=== PATIENT | female | born 1995 | race Two or more races ===

== ENCOUNTER 2024-07-10 13:26 | Emergency (ER) | payer MEDICAID, SELFPAY ==
[2024-07-10 13:30] VITALS: BP 138/76; PULSE 75; RESP 18; TEMP 36.8; O2SAT 98
--- NOTE | 2024-07-10 13:42 | PD.EDRME ---
Rapid Medical Screening Exam RME Arrival date/time: 07/10/24 13:26 Chief Complaint: Nausea/Vomiting/Diarrhea Time Seen by Provider: 07/10/24 13:32 Vital signs: Vital Signs Temperature 98.3 F 07/10/24 13:30 Pulse Rate 75 07/10/24 13:30 Respiratory Rate 18 07/10/24 13:30 Blood Pressure 138/76 H 07/10/24 13:30 Pulse Oximetry (%) 98 07/10/24 13:30 Oxygen Delivery Method Room Air 07/10/24 13:30 RME Narrative: Shortness of breath, n/v started this morning. History of anxiety. Patient reports she has recently been stressed out.
--- NOTE | 2024-07-10 13:43 | XR_ITS ---
Examination: AP chest single view Technique one AP upright portable chest single view Exam date and time: July 10, 2024 1353 hours Comparison February 13, 2023 INDICATIONS: Shortness breath chest pain today FINDINGS: Normal heart size Lungs are clear. The osseous structures are intact IMPRESSION: No active disease
--- NOTE | 2024-07-10 13:43 | EKG_ITS ---
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
[2024-07-10] MEDS: ONDANSETRON ODT 4 MG TABRAP 8 MG PO (14:29)
[2024-07-10 14:47] LABS: Basophils % (Auto) 0 % (0-2.5); Eosinophils % (Auto) 0 % (0-10); Hematocrit 40.1 % (36.0-46.0); Hemoglobin 14.2 g/dL (12.0-16.0); Immature Granulocytes % (Auto) 0 % (0-0); Immature Granulocytes Auto 0.01 Thou/mm3 (0.00-0.00); Lymphocytes # (Auto) 0.8 Thou/mm3 (1.0-4.8); Lymphocytes % (Auto) 21 % (10-50); Mean Corpuscular HGB Conc 35.4 g/dl (31.0-37.0); Mean Corpuscular Hemoglobin 32.1 pg (25.0-35.0); Mean Corpuscular Volume 91 fL (80-100); Monocytes # (Auto) 0.4 Thou/mm3 (0.0-0.8); Monocytes % (Auto) 11 % (0-12); Neutrophils # (Auto) 2.5 Thou/mm3 (1.8-7.7); Neutrophils % (Auto) 67 % (37-80); Nucleated Red Blood Cell % 0 /100 WBC (0); Platelet Count 304 Thou/mm3 (140-440); RDW Standard Deviation 38.8 fL (36.4-46.3); Red Blood Count 4.43 Miln/mm3 (4.00-5.20); White Blood Count 3.7 Thou/mm3 (3.6-11.0)
[2024-07-10 15:08] LABS: B-Type Natriuretic Peptide < 20 pg/mL (0-100)
[2024-07-10 15:14] LABS: Alanine Aminotransferase 21 U/L (10-49); Albumin, Serum 5.1 gm/dL (3.5-5.0); Alcohol, Blood Medical < 3.0 mg/dL (0-10.0); Alkaline Phosphatase 44 U/L (46-116); Anion Gap 10 (7-16); Aspartate Amino Transferase 28 U/L (0-34); BUN/Creatinine Ratio 9 Ratio (12-20); Bilirubin,Total 0.7 mg/dL (0.3-1.2); Blood Urea Nitrogen 8 mg/dL (9-23); Calcium 9.6 mg/dL (8.3-10.6); Calcium (Corrected) 9.6 mg/dL (8.5-10.1); Carbon Dioxide 24.4 mMol/L (20.0-31.0); Chloride 104 mMol/L (98-107); Creatinine (Component) 0.9 mg/dL (0.6-1.3); Globulin 2.6 gm/dL (2.3-3.5); Glucose 97 mg/dL (74-106); Lipase 33 U/L (12-53); Osmolality,Calculated 273 (275-295); Potassium 3.7 mMol/L (3.4-5.1); Sodium 138 mMol/L (136-145); Total Protein 7.7 gm/dL (5.7-8.2); Troponin I < 0.020 ng/mL (0.0-0.045); eGFR > 60 See Note
[2024-07-10 17:27] LABS: Collection Type, Urine Clean Catch; WBC,Urine 0 /hpf (0-5)
[2024-07-10 17:41] LABS: HCG Qualitative,Urine Negative
[2024-07-10 17:44] LABS: Amorphous Crystals,Urine Present (Absent); Bilirubin,Urine Negative (Negative); Blood,Urine 3+ (Negative); Color,Urine Orange (Lt Yel-Yel); Glucose, Urine Negative (Negative); Ketones,Urine 4+ (Negative); Leukocyte Esterase,Urine Negative (Negative); Nitrite,Urine Negative (Negative); Protein,Urine 2+ (Neg - Trace); RBC,Urine 10 /hpf (0-3); Specific Gravity,Urine 1.035 (1.001-1.035); Squamous Epithelial Cell,Urine 25 /hpf (0-5)
[2024-07-10 17:45] LABS: Clarity,Urine Cloudy (Clear/Hazy)
[2024-07-10 17:58] LABS: Amphetamine/Methamp Scrn,U Negative (Negative); Barbiturate Screen,Urine Negative (Negative); Benzodiazepines Screen,Urine Negative (Negative); Benzoylecgonine Screen, Ur Negative (Negative); Fentanyl Screen,Urine Negative (Negative); Opiate Screen,Urine Negative (Negative); THC Screen,Urine Positive (Negative)
[2024-07-10] MEDS: ACETAMINOPHEN 500 MG TABLET 1000 MG PO (18:41)
--- NOTE | 2024-07-10 19:41 | EDNOTE_ITS ---
<Statement entered by Caroline Liegh MD - 07/11/24 19:38> As co-signing physician, I was present and available for consult prn. I concur with the plan and care as documented by the midlevel provider. Nausea/Vomit./Diarrhea-RME/HPI General Chief complaint: Nausea/Vomiting/Diarrhea Stated complaint: N/V, COUGH X2 DAYS, ANXIETY Time Seen by Provider: 07/10/24 13:32 Arrival date/time: 07/10/24 13:26 RME / HPI RME / HPI Narrative: 29-year-old female patient with significant history of anxiety, came in for evaluation regarding shortness of breath, cough, nausea, vomiting, started this morning. Severity of symptoms, moderate. Denies any blood in the vomiting. Patient told me that recently she has been stressed out a lot. Also admits of smoking marijuana denies any fever denies any other complaints no medications taken prior travel. Related Data Previous Rx's ?Medication ?Instructions ?Recorded mupirocin calcium 2 % topical cream 1 applic topical QDAY #15 grams 11/20/20 ibuprofen 800 mg tablet 800 mg PO TID PRN pain #30 tabs 07/27/23 ondansetron HCl 8 mg tablet 8 mg PO Q8H PRN nausea and 07/10/24 vomiting 5 days #20 tabs Allergies Allergy/AdvReac Type Severity Reaction Status Date / Time Penicillins Allergy Mild RASH Verified 07/10/24 13:28 Review of Systems Review of Systems Narrative Review of Systems: Review of system reviewed and within normal limits except mentioned in HPI ED Exam Narrative Physical exam: VITAL SIGNS: Reviewed. GENERAL APPEARANCE: Alert and interactive, follows commands, no acute distress, HEAD AND FACE: Non-traumatic. ENT: PERRL, pink conjunctivitis, eyelid no trauma, Mucous membrane moist. NECK: Supple, nontender, no nuchal rigidity. CHEST: No tenderness, no crepitus, no paradoxical movement, no retractions. LUNGS: Clear, well ventilated, symmetric, no rales, no wheezing, no ronchi, no stridor, good breath sounds bilaterally. HEART: Regular rate, regular rhythm, no murmur, no gallops. ABDOMEN: Soft, positive bowel sounds, nondistended, no guarding, nontender, no rebound, no masses, RECTAL: Deferred. GENITAL: Deferred. NEUROLOGICAL: Gross motor function intact sensory function intact, Appropriate for age. MUSCULOSKELETAL: low back nontender, full range of motion. EXTREMITIES: Nontender, full range of motion. SKIN: Color pink, dry, no rash, no lacerations, no abrasions, no contusions. LYMPHATICS: Deferred. Course Quality Measures none Orders Category Date Time Status EKG (ED ONLY) *Do not use* NOW Care 07/10/24 13:43 Completed CXR [XR chest 1V] Stat Exams 07/10/24 13:43 Completed EKG (ED Only) Stat Exams 07/10/24 13:43 Draft Alcohol, Blood Medical Stat Lab 07/10/24 14:25 Completed BNP [B-Type Natriuretic Peptide] Stat Lab 07/10/24 14:25 Completed CBC Stat Lab 07/10/24 14:25 Completed CMP [Comprehensive Metabolic Panel] Stat Lab 07/10/24 14:25 Completed Drug Screen,Urine Stat Lab 07/10/24 16:50 Completed HCG Qualitative,Urine Stat Lab 07/10/24 16:50 Completed Lipase Stat Lab 07/10/24 14:25 Completed Troponin I Stat Lab 07/10/24 14:25 Completed UA [Urinalysis] Stat Lab 07/10/24 16:50 Completed Acetaminophen Tab [Tylenol ES Tab] Med 07/10/24 17:52 Discontinued 1,000 mg PO X1 ONE Ondansetron Odt [Zofran Odt] Med 07/10/24 14:00 Discontinued 8 mg PO X1 ONE Vital Signs Vital signs: Vital Signs Temperature 98.3 F 07/10/24 13:30 Pulse Rate 75 07/10/24 13:30 Respiratory Rate 18 07/10/24 13:30 Blood Pressure 138/76 H 07/10/24 13:30 Pulse Oximetry (%) 98 07/10/24 13:30 Oxygen Delivery Method Room Air 07/10/24 13:30 Nausea/Vomiting/Diarrhea MDM Narrative MDM Narrative:: 29-year-old female patient with significant history of anxiety, came in for evaluation regarding shortness of breath, cough, nausea, vomiting, started this morning. Severity of symptoms, moderate. Denies any blood in the vomiting. Patient told me that recently she has been stressed out a lot. Also admits of smoking marijuana denies any fever denies any other complaints no medications taken prior travel. Patient workup today all came back normal except positive for marijuana. Patient was given Zofran, Tylenol, on Reglan with complete resolution of symptoms. Chest x-ray UNREMARKABLE. Patient is ready to go home. Patient data External records reviewed:: None Clinical information provided by:: none Social determinants that could affect healthcare access:: substance use Patient has the following chronic illnesses:: anxiety How is presenting disease/condition affected by chronic disease/condition?: exacerbated by Evaluation data The following diagnostics were reviewed and interpreted by me:: lab results, radiology exam(s) and EKG tracing(s) Lab and/or radiology exams considered but not ordered:: None Interpretation Summary: Laboratory workup came back unremarkable. EKG showed sinus bradycardia, ventricular rate of 40 bpm, no ST segment elevation depression noted. I personally reviewed and interpreted the x-ray of this patient. There is no acute abnormalities found, no infiltrates no pneumothorax no hemothorax normal chest x-ray. Review of other structures was without significant abnormal findings also. I additionally reviewed the radiologist report and agree with the interpretation. Medications / Prescriptions Medications / Prescriptions considered but not ordered:: None Medication administrations:: Medication Administration History Discontinued Medications Acetaminophen (Acetaminophen 500 Mg Tablet) 1,000 mg PO X1 ONE Stop: 07/10/24 17:53 Last Admin: 07/10/24 18:41 Dose: 1,000 mg Documented By: Ondansetron HCl (Ondansetron Odt 4 Mg Tabrap) 8 mg PO X1 ONE; Protocol Stop: 07/10/24 14:01 Last Admin: 07/10/24 14:29 Dose: 8 mg Documented By: Tylenol, Zofran Consultations Consultation(s) initiated? (list below): No Diagnosis Nausea Differential Diagnosis: food poisoning and other (Nausea vomiting, hyperemesis syndrome secondary to marijuana) Most likely diagnosis given after review of the tests above:: Nausea and vomiting Admission Indicated Admission indicated?: not indicated Admission Request Was there a request for admission?: No Disposition Plan Disposition Plan: Discharge Discharge Attestation Discharge Attestation: The patient and all family members were given an opportunity to ask questions and understood the discharge instructions. Discharge instructions specifically effects, indications for sooner follow up or return to the emergency department, and the expected course of current diagnosis. Patient condition: Stable Discharge Plan Plan Patient Disposition: HOME (Self Care) Disposition Comment: Stable Prescriptions/Referrals Prescriptions/Med Rec: New ondansetron HCl 8 mg tablet 8 mg PO Q8H PRN (Reason: nausea and vomiting) 5 Days Qty: 20 0RF No Action mupirocin calcium 2 % cream 1 applic topical QDAY Qty: 15 0RF ibuprofen 800 mg tablet 800 mg PO TID PRN (Reason: pain) Qty: 30 0RF Referrals: Nathen Dykes MD [Primary Care Provider] - In 1 week Problem List Clinical Impression: Nausea & vomiting, Cough Patient/Caregiver Discharge Instructions Discharge Activity: activity as tolerated Education Materials: ED Diet for Vomiting or ... Additional Instructions: Thank you for the opportunity for serving you today. You are stable for discharged . You are advised to: Follow-up with your PCP in 1 to 2 days Return to ED for worsening of symptoms Increase oral fluids Take medication as prescribed Print Language: Latvian Stand Alone Forms: Gracie Award Info., Patient Portal Info Letter PA/BO Supervising Physician DIVINA/BO Supervising Physician: MD Lu
[2024-07-10] MEDS: METOCLOPRAMIDE 5 MG TABLET 10 MG PO (19:59)
== END 2024-07-10 20:19 | disposition home or self-care (01) ==
PROVIDERS: Physician Assistant; Emergency Provider Emergency Medicine; PCP Family Medicine
DX: R11.2 Nausea with vomiting, unspecified (principal); R05.9 Cough, unspecified; R00.1 Bradycardia, unspecified
CPT/HCPCS: 36415; 71045; 80053; 80307; 80320; 81001; 81025; 83690; 83880; 84484; 85025; 93005; 99283; Q0162; A9270; G0480

== ENCOUNTER 2025-02-01 22:24 | Emergency (ER) | payer MEDICAID, SELFPAY ==
[2025-02-01 22:26] VITALS: BMI 40.0
[2025-02-01 22:35] VITALS: BP 130/87; RESP 18; TEMP 37.1; O2SAT 99
--- NOTE | 2025-02-01 23:58 | PD.EDABDPN ---
ED Abdominal Pain RME/HPI General Chief Complaint: Abdominal Pain Stated complaint: 9 WKS PREG CO LOW ABD PAIN Time seen by provider: 02/01/25 23:52 Arrival date/time: 02/01/25 22:24 RME / HPI RME / HPI narrative: This section includes all my notes and documentations, including HPI, PE, and ED course. Ha Naqvi MD HPI: 29yo female who is ~9 weeks gestation here with pelvic cramping today. LMP was 11/29/24. No vaginal bleeding. No other complaints. ROS: All negative except as documented in HPI. Physical Exam: General: Alert and oriented. No acute distress when remaining still. Eyes: Conjunctivae and lids clear. ENT: No nasal congestion. Neck: Supple. Heart: RRR. Lungs: No respiratory distress. Good air movement. No rhonchi, wheezing, rales. Abdomen: Soft and nontender. Normal bowel sounds. No distension. No rebound or guarding. Back: No CVA tenderness. Skin: Warm and dry. Neuro: Alert and oriented X 3. I reviewed all diagnostic test results. My review of the OB ultrasound report is no IUP. Blood tests are unremarkable for beta HCG 25. At this point, diagnoses include threatened miscarriage. Recommended expectant management. Based on my best medical judgment, made decision no further evaluation or treatment indicated at this time. Patient understands and agrees to the discharge instructions customized and printed, see below. Discharge Instructions from Dr. Naqvi printed for you: 1. Based on your last menstruation 11/29/2024, today's gestational age should be about 9 weeks. 2. Based on ultrasound today, there is no in the uterus. It is possible we are too early. 3. Only time will tell what will happen. If your symptoms, including vaginal bleeding bleeding, you can have a miscarriage. If your symptoms stop and your is very early, you may have successful . 4. If you do have a miscarriage, we won't be able to save your baby. Under 20-24 weeks, we can't save the baby. 5. No sexual activity until cleared by a doctor taking care of you. 6. See a private doctor 02/05/2025 for recheck and further care. 7. Seek immediate medical care with intolerable pain, extremely heavy vaginal bleeding (soaking more than 3 pads per hour), or with any concerns. Ha Naqvi MD Related Data Previous Rx's ?Medication ?Instructions ?Recorded mupirocin calcium 2 % topical cream 1 applic topical QDAY #15 grams 11/20/20 ibuprofen 800 mg tablet 800 mg PO TID PRN pain #30 tabs 07/27/23 Allergies Allergy/AdvReac Type Severity Reaction Status Date / Time Penicillins Allergy Mild RASH Verified 02/01/25 22:34 Review of Systems Review of Systems Systems Reviewed: All systems reviewed, normal except as documented Past Medical History Past Medical History NEUROLOGIC: Negative Neurological Disorders CARDIAC: Positive Cardiac Disorders and Hypertension; Negative Congestive Heart Failure RESPIRATORY: Negative Chronic Obstructive Pulmonary Disease (COPD) or Asthma GASTROINTESTINAL: Negative Gastrointestinal Disorders or Hepatitis GENITOURINARY: Positive Genitourinary Disorders; Negative Renal Disease REPRODUCTIVE: Positive Previous Pregnancies; Negative Endometriosis, Pelvic Inflammatory Disease or Uterine Prolapse MUSCULOSKELETAL: Negative Musculoskeletal Disorders ENDOCRINE: Negative Endocrine Disorders, Diabetes Mellitus Type 1 or Diabetes Mellitus Type 2 HEMATOLOGIC: Negative Blood Disorders or Sickle Cell Disease PSYCHO/SOCIAL: Positive Anxiety OTHER HISTORY: Positive Chicken Pox; Negative Hospitalization, Autoimmune Disease, Down Syndrome, Developmental Delay, Shingles, Falls, Blood Transfusions, Blood Transfusion Reaction, Anesthesia Reactions, Organ Transplant, Chemotherapy, Radiation Therapy, Hyperbaric Therapy, MRSA, VRSA, Vancomycin-Resistant Enterococci, Human Immunodeficiency Virus (HIV), Measles, Mumps, Rubella ([place] Measles), Pertussis, Clostridium Difficile or Cancer Family History FAMILY HISTORY: Positive Family Psychiatric Problems, Family Cardiac Disorders and Family Cancer; Negative Family Respiratory Disorders, Family Gastrointestinal Problems, Family Surgery or Family Anesthesia Reaction Surgical History SURGICAL: Negative Organ Transplant Social History SMOKING STATUS: Never smoker SECOND HAND EXPOSURE: No SUBSTANCE USE: does not use ED Exam Narrative Physical exam: As noted in HPI. Course Quality Measures none Orders Category Date Time Status US OB <= 14 weeks fetus Stat Exams 02/02/25 00:11 Taken Beta HCG,Quantitative Stat Lab 02/02/25 00:27 Completed Bilirubin,Direct Stat Lab 02/02/25 00:27 Completed CBC Stat Lab 02/02/25 00:27 Completed CMP [Comprehensive Metabolic Panel] Stat Lab 02/02/25 00:27 Completed Magnesium Stat Lab 02/02/25 00:27 Completed Rh Testing Only Stat Lab 02/02/25 00:27 Completed UA, C/S IF [Urinalysis, C/S if Indicated] Stat Lab 02/02/25 01:35 Received Vital Signs Vital signs: Vital Signs Temperature 98.7 F 02/01/25 22:35 Respiratory Rate 18 02/01/25 22:35 Blood Pressure 130/87 H 02/01/25 22:35 Pulse Oximetry (%) 99 02/01/25 22:35 Oxygen Delivery Method Room Air 02/01/25 22:35 Abdominal Pain MDM MDM Narrative MDM Narrative:: 29yo female who is ~9 weeks gestation here with pelvic cramping today. LMP was 11/29/24. No vaginal bleeding. No other complaints. Patient data External records reviewed:: [facility] previous records (Per chart review, patient was seen here on 07/10/24 for cough.) Clinical information provided by:: patient Social determinants that could affect healthcare access:: none Patient has the following chronic illnesses:: HTN How is presenting disease/condition affected by chronic disease/condition?: uneffected by Evaluation data The following diagnostics were reviewed and interpreted by me:: lab results and radiology exam(s) Lab and/or radiology exams considered but not ordered:: none Interpretation Summary: I reviewed all diagnostic test results. My review of the OB ultrasound report is no IUP. Blood tests are unremarkable for beta HCG 25. Medications / Prescriptions Medications or Prescriptions considered but not ordered:: none Medication administrations:: none Consultations Consultation(s) initiated? (list below): No Diagnosis Differential diagnosis abdominal pain: other (IUP, ectopic , threatened AB, incomplete AB, complete AB) Most likely diagnosis given after review of the tests above:: Threatened miscarriage Admission Indicated Admission indicated?: not indicated Explain why admission is indicated or not indicated:: With no condition needing emergent intervention, there was no indication for admission. Admission Request Was there a request for admission?: No Disposition Plan Disposition Plan: Discharge Discharge Attestation Discharge Attestation: The patient and all family members were given an opportunity to ask questions and understood the discharge instructions. Discharge instructions specifically effects, indications for sooner follow up or return to the emergency department, and the expected course of current diagnosis. Patient condition: Stable Discharge Plan Plan Patient Disposition: HOME (Self Care) Prescriptions/Referrals Prescriptions/Med Rec: No Action mupirocin calcium 2 % cream 1 applic topical QDAY Qty: 15 0RF ibuprofen 800 mg tablet 800 mg PO TID PRN (Reason: pain) Qty: 30 0RF Referrals: Nathen Dykes MD [Primary Care Provider] - In 1 week Problem List Clinical Impression: Threatened miscarriage Patient/Caregiver Discharge Instructions Education Materials: ED Possible Miscarriage ... Additional Instructions: Discharge Instructions from Dr. Naqvi printed for you: 1.? Based on your last menstruation 11/29/2024, today's gestational age should be about 9 weeks. 2.? Based on ultrasound today, there is no in the uterus. It is possible we are too early. 3.? Only time will tell what will happen. If your symptoms, including vaginal bleeding bleeding, you can have a miscarriage. If your symptoms stop and your is very early, you may have successful . 4.? If you do have a miscarriage, we won't be able to save your baby. Under 20-24 weeks, we can't save the baby. 5.? No sexual activity until cleared by a doctor taking care of you. 6.? See a private doctor 02/05/2025 for recheck and further care. 7.? Seek immediate medical care with intolerable pain, extremely heavy vaginal bleeding (soaking more than 3 pads per hour), or with any concerns. Print Language: Mozambican Stand Alone Forms: Gracie Award Info., Patient Portal Info Letter
--- NOTE | 2025-02-02 00:11 | XR_ITS ---
Examination: Complete OB ultrasound, less than 14 weeks, transabdominal Date and time of exam: February 02, 2025, 0039 hours INDICATIONS: Pelvic cramping beginning 8 weeks ago Technique: Obstetrical ultrasound images less than 14 weeks performed via transabdominal imaging Findings: Uterus 8.0 cm intrauterine mass not depicted, no intrauterine gestation, endometrial stripe 13 mm Right ovary 3.2 cm R total flow Left ovary is obscured by bowel gas IMPRESSION: No uterine mass or intrauterine gestation
[2025-02-02 01:01] LABS: Basophils # (Auto) 0.1 Thou/mm3 (0.0-0.2); Basophils % (Auto) 1 % (0-2.5); Eosinophils # (Auto) 0.1 Thou/mm3 (0.0-0.5); Eosinophils % (Auto) 2 % (0-10); Hematocrit 36.5 % (36.0-46.0); Hemoglobin 13.1 g/dL (12.0-16.0); Immature Granulocytes Auto 0.02 Thou/mm3 (0.00-0.00); Lymphocytes # (Auto) 2.5 Thou/mm3 (1.0-4.8); Lymphocytes % (Auto) 36 % (10-50); Mean Corpuscular HGB Conc 35.9 g/dl (31.0-37.0); Mean Corpuscular Hemoglobin 33.5 pg (25.0-35.0); Mean Corpuscular Volume 93 fL (80-100); Monocytes # (Auto) 0.5 Thou/mm3 (0.0-0.8); Monocytes % (Auto) 8 % (0-12); Neutrophils # (Auto) 3.9 Thou/mm3 (1.8-7.7); Neutrophils % (Auto) 54 % (37-80); Nucleated Red Blood Cell # 0.00 Thou/mm3 (0.00-0.00); Nucleated Red Blood Cell % 0 /100 WBC (0); Platelet Count 322 Thou/mm3 (140-440); RDW Standard Deviation 40.4 fL (36.4-46.3); Red Blood Count 3.91 Miln/mm3 (4.00-5.20); White Blood Count 7.1 Thou/mm3 (3.6-11.0)
[2025-02-02 01:22] LABS: Alanine Aminotransferase 15 U/L (10-49); Albumin, Serum 4.4 gm/dL (3.5-5.0); Albumin/Globulin Ratio 1.7 (1.2-2.2); Alkaline Phosphatase 44 U/L (46-116); Anion Gap 9 (7-16); Aspartate Amino Transferase 17 U/L (0-34); BUN/Creatinine Ratio 6 Ratio (12-20); Beta HCG,Quantitative 25 mIU/mL (<5.0); Bilirubin,Direct 0.2 mg/dL (0.0-0.3); Bilirubin,Total 0.5 mg/dL (0.3-1.2); Blood Urea Nitrogen < 5 mg/dL (9-23); Calcium 9.0 mg/dL (8.3-10.6); Calcium (Corrected) 9.0 mg/dL (8.5-10.1); Carbon Dioxide 26.5 mMol/L (20.0-31.0); Chloride 108 mMol/L (98-107); Creatinine (Component) 0.9 mg/dL (0.6-1.3); Estimated Creatinine Clearance 118.4 mL/min (>60); Globulin 2.6 gm/dL (2.3-3.5); Glucose 86 mg/dL (74-106); Magnesium 1.9 mg/dL (1.6-2.6); Osmolality,Calculated 281 (275-295); Potassium 3.6 mMol/L (3.4-5.1); Sodium 143 mMol/L (136-145); Total Protein 7.0 gm/dL (5.7-8.2); eGFR > 60 See Note
[2025-02-02 01:50] LABS: Collection Type, Urine Clean Catch
[2025-02-02 02:07] LABS: Bilirubin,Urine Negative (Negative); Blood,Urine Negative (Negative); Clarity,Urine Turbid (Clear/Hazy); Color,Urine Yellow (Lt Yel-Yel); Glucose, Urine Negative (Negative); Ketones,Urine Negative (Negative); Leukocyte Esterase,Urine Positive (Negative); Nitrite,Urine Negative (Negative); PH,Urine 6.0 (5.0-7.0); Protein,Urine 1+ (Neg - Trace); RBC,Urine 9 /hpf (0-3); Specific Gravity,Urine 1.036 (1.001-1.035); Squamous Epithelial Cell,Urine 2 /hpf (0-5); Urobilinogen,Urine Negative mg/dL (0.0-1.0); WBC,Urine 11 /hpf (0-5)
[2025-02-02 02:14] LABS: Culture Indicated,Urine Yes
--- NOTE | 2025-02-02 02:28 | PRELIM_ITS ---
Pelvic ultrasound (transabdominal). February 02, 2025 at 0039 hours Clinical history: Cramping (GA 9 weeks). Technique: Real-time, grayscale, transabdominal ultrasound was performed using Duplex scanning including arterial inflow, venous outflow, color and spectral Doppler. Findings: The uterus is normal in size, measuring 8 ?? 4.1 ?? 4.9 cm. The endometrium is unremarkable and measures 1.3 cm. The right ovary measures 3.2 ?? 2.8 ?? 2.6 cm and is unremarkable. It demonstrates normal colour flow signal on Doppler evaluation. The left ovary is not visualized due to overlying bowel gas. There is no adnexal mass. There is no free fluid on the submitted images. Impression: No evidence of intrauterine gestation at this time. Differential considerations include early intrauterine , recent miscarriage, or occult ectopic . Recommend correlation with serum ??-hCG and follow-up sonographic evaluation. Report Electronically Signed By: Melvina Roberto 02/02/2025 2:27:44 AM [EST]
== END 2025-02-02 01:58 | disposition home or self-care (01) ==
PROVIDERS: Emergency Provider Emergency Medicine; PCP Family Medicine
DX: O20.0 Threatened abortion (principal); Z3A.09 9 weeks gestation of pregnancy
CPT/HCPCS: 36415; 76801; 80053; 81001; 82248; 83735; 84702; 85025; 86901; 87077; 87086; 99284

== ENCOUNTER 2025-02-02 08:28 | Emergency (ER) | payer MEDICAID, SELFPAY ==
[2025-02-02 08:29] VITALS: BMI 395.0
[2025-02-02 08:35] VITALS: BP 187/96; PULSE 81; RESP 18; TEMP 37.1; O2SAT 98
--- NOTE | 2025-02-02 08:46 | PD.EDPREG ---
ED OB Contraction Preg RMI/HPI General Chief complaint: OB/Uterine Contractions Stated complaint: BLEEDING, CRAMPING; 9 WKS PREG Time Seen by Provider: 02/02/25 08:30 Arrival date/time: 02/02/25 08:28 29-year-old female presents emergency department today for complaints of vaginal spotting today patient was evaluated yesterday had lab work and ultrasound completed patient reports that she came in for reevaluation Limitations: no limitations Related Data Previous Rx's ?Medication ?Instructions ?Recorded mupirocin calcium 2 % topical cream 1 applic topical QDAY #15 grams 11/20/20 ibuprofen 800 mg tablet 800 mg PO TID PRN pain #30 tabs 07/27/23 Allergies Allergy/AdvReac Type Severity Reaction Status Date / Time Penicillins Allergy Mild RASH Verified 02/01/25 22:34 Review of Systems Review of Systems Systems Reviewed: All systems reviewed, normal except as documented Constitutional Constitutional: Reports system reviewed and no additional complaints, except as documented, Denies fever(s) and Denies headache(s) Eyes Eyes: Reports system reviewed and no additional complaints, except as documented and Denies blurry vision ENT Ears, Nose, Mouth, and Throat: Reports system reviewed and no additional complaints, except as documented, Denies headache(s), Denies nasal congestion and Denies nasal discharge Cardiovascular Cardiovascular: Reports system reviewed and no additional complaints, except as documented, Denies chest pain and Denies dyspnea Respiratory Respiratory: Reports system reviewed and no additional complaints, except as documented, Denies chest congestion, Denies cough and Denies dyspnea Gastrointestinal Gastrointestinal: Reports system reviewed and no additional complaints, except as documented and Denies abdominal pain Genitourinary Genitourinary: Reports system reviewed and no additional complaints, except as documented and Reports abnormal vaginal bleeding Integumentary/Breasts Skin/Breast: Reports system reviewed and no additional complaints, except as documented and Denies rash Neurologic Neurologic: Reports system reviewed and no additional complaints, except as documented, Reports as per HPI and Denies headache(s) Past Medical History Past Medical History NEUROLOGIC: Negative Neurological Disorders CARDIAC: Positive Cardiac Disorders and Hypertension; Negative Congestive Heart Failure RESPIRATORY: Negative Chronic Obstructive Pulmonary Disease (COPD) or Asthma GASTROINTESTINAL: Negative Gastrointestinal Disorders or Hepatitis GENITOURINARY: Positive Genitourinary Disorders; Negative Renal Disease REPRODUCTIVE: Positive Previous Pregnancies; Negative Endometriosis, Pelvic Inflammatory Disease or Uterine Prolapse MUSCULOSKELETAL: Negative Musculoskeletal Disorders ENDOCRINE: Negative Endocrine Disorders, Diabetes Mellitus Type 1 or Diabetes Mellitus Type 2 HEMATOLOGIC: Negative Blood Disorders or Sickle Cell Disease PSYCHO/SOCIAL: Positive Anxiety OTHER HISTORY: Positive Chicken Pox; Negative Hospitalization, Autoimmune Disease, Down Syndrome, Developmental Delay, Shingles, Falls, Blood Transfusions, Blood Transfusion Reaction, Anesthesia Reactions, Organ Transplant, Chemotherapy, Radiation Therapy, Hyperbaric Therapy, MRSA, VRSA, Vancomycin-Resistant Enterococci, Human Immunodeficiency Virus (HIV), Measles, Mumps, Rubella ([place] Measles), Pertussis, Clostridium Difficile or Cancer Family History FAMILY HISTORY: Positive Family Psychiatric Problems, Family Cardiac Disorders and Family Cancer; Negative Family Respiratory Disorders, Family Gastrointestinal Problems, Family Surgery or Family Anesthesia Reaction Surgical History SURGICAL: Negative Organ Transplant Social History SMOKING STATUS: Never smoker SECOND HAND EXPOSURE: No SUBSTANCE USE: does not use ED Exam General Limitations: Present no limitations General appearance: Present alert and in no apparent distress Head Head exam: Present atraumatic Eye Eye exam: Present normal appearance, PERRL and EOMI ENT ENT exam: Present normal exam, normal oropharynx and mucous membranes moist Neck Neck exam: Present normal inspection, full ROM and trachea midline Chest Chest inspection: Present normal inspection and symmetric chest wall rise Respiratory Respiratory exam: Present normal lung sounds bilaterally; Absent respiratory distress Cardiovascular Cardiovascular exam: Present regular rate, normal rhythm and normal heart sounds Abdominal Exam Abdominal exam: Present soft and normal bowel sounds; Absent distention, tenderness, guarding, rebound or rigidity Extremities Exam Extremities exam: Present normal inspection and full ROM Back Exam Back exam: Present normal inspection and full ROM Neurological Exam Neurological exam: Present alert, oriented X3 and CN II-XII intact Psychiatric Psychiatric exam: Present normal affect and normal mood Skin Skin exam: Present warm, dry, intact and normal color Course Quality Measures none Vital Signs Vital signs: Vital Signs Temperature 98.8 F 02/02/25 08:35 Pulse Rate 81 02/02/25 08:35 Respiratory Rate 18 02/02/25 08:35 Blood Pressure 187/96 H 02/02/25 08:35 Pulse Oximetry (%) 98 02/02/25 08:35 Oxygen Delivery Method Room Air 02/02/25 08:35 O2 saturation 98% room air within normal limits OB/Uterine Contractions MDM Narrative MDM Narrative:: 29-year-old female presents emergency department today for complaints of vaginal spotting today patient was evaluated yesterday had lab work and ultrasound completed patient reports that she came in for reevaluation On exam patient well-appearing patient does not appear toxic in no acute distress Patient is hemodynamically stable Patient reports that she had a previous beta-hCG level of 30 approximately 3 to 4 weeks ago which has decreased I reviewed the patient's lab work and ultrasound from yesterday based on presentation and review of symptoms symptoms are consistent with missed I explained to the patient she needs to have follow-up with [facility] for worsening symptoms return immediately Patient discharged home in no distress to follow-up with primary care doctor in the next 24 to 48 hours and for any worsening symptoms to return to the ER immediately Patient data External records reviewed:: [facility] previous records Clinical information provided by:: patient Social determinants that could affect healthcare access:: none Patient has the following chronic illnesses:: None How is presenting disease/condition affected by chronic disease/condition?: no chronic disease Evaluation data The following diagnostics were reviewed and interpreted by me:: lab results and radiology exam(s) Lab and/or radiology exams considered but not ordered:: Labs radiology reviewed Interpretation Summary: Reviewed by me Medications / Prescriptions Medications or Prescriptions considered but not ordered:: Given no meds Medication administrations:: Given no meds Consultations Consultation(s) initiated? (list below): No Diagnosis OB Contractions Differential Diagnosis: other (Missed , threatened ) Most likely diagnosis given after review of the tests above:: Missed Admission Indicated Admission indicated?: not indicated Explain why admission is indicated or not indicated:: No criteria Admission Request Was there a request for admission?: No Disposition Plan Disposition Plan: Discharge Discharge Attestation Discharge Attestation: The patient and all family members were given an opportunity to ask questions and understood the discharge instructions. Discharge instructions specifically effects, indications for sooner follow up or return to the emergency department, and the expected course of current diagnosis. Patient condition: Stable Discharge Plan Plan Patient Disposition: HOME (Self Care) Discharge Disposition comment: Stable Prescriptions/Referrals Prescriptions/Med Rec: No Action mupirocin calcium 2 % cream 1 applic topical QDAY Qty: 15 0RF ibuprofen 800 mg tablet 800 mg PO TID PRN (Reason: pain) Qty: 30 0RF Problem List Clinical Impression: , threatened Patient/Caregiver Discharge Instructions Education Materials: Understanding Miscarriage ... Additional Instructions: Please follow up with your [facility] doctor in the next 24-48hrs for any worsening symptoms return here immediately Print Language: Maldivian Stand Alone Forms: Gracie Award Info., Patient Portal Info Letter PA/[employer] Supervising Physician PA/[employer] Supervising Physician: dr herrera
== END 2025-02-02 08:56 | disposition home or self-care (01) ==
LOC: SERX 08:52
PROVIDERS: Emergency Provider Nurse Practitioner Primary Care
DX: O20.0 Threatened abortion (principal); Z3A.09 9 weeks gestation of pregnancy
CPT/HCPCS: 99283